=== PATIENT | female | born 1960 | race Hispanic/Latino ===

== ENCOUNTER 2022-04-09 15:49 | Inpatient (IN) | payer OTHER ==
[~2022-04-09] VITALS: Ht 157.5 cm; Wt 74.9 kg
[2022-04-09 20:00] VITALS: BP 150/65
[2022-04-09] MEDS ORDERED: LABETALOL 20MG SYG IV PRN (21:00)
[2022-04-09] MEDS ORDERED: MORPHINE 4 MG SYG IVP PRN (21:00)
[2022-04-09] MEDS ORDERED: LACTULOSE 20 GM/30 ML UDCUP PO PRN (21:00)
[2022-04-09] MEDS ORDERED: TEMAZEPAM 15 MG CAPSULE PO PRN (21:00)
[2022-04-09] MEDS ORDERED: ONDANSETRON 4MG INJ IVP PRN (21:00)
[2022-04-09] MEDS ORDERED: ACETAMINOPHEN 325 MG TAB PO PRN (21:00)
[2022-04-09] MEDS ORDERED: ACETAMINOPHEN 650 MG SUPPOSITORY RC PRN (21:00)
[2022-04-09] MEDS ORDERED: DOCUSATE SODIUM 100 MG CAP PO PRN (21:00)
[2022-04-09] MEDS ORDERED: HYDRALAZINE HCL 10 MG TABLET PO PRN (21:00)
[2022-04-09] MEDS ORDERED: TRAMADOL HCL 50 MG TABLET PO PRN (21:00)
[2022-04-09 23:10] LABS: ABG BASE EXCESS -2.6 mmol/L (-2.0-3.0); ABG HCO3 20.6 mmol/L (21.0-28.0); ABG OXYGEN SATURATION 94.3 % (95.0-99.0); ABG PCO2 31 mmHg (32-45)
[2022-04-09 23:20] LABS: HEMATOCRIT 34.1 % (36-48); MEAN CORPUSCULAR HEMOGLOBIN 28.8 pg (27.0-33.0); MEAN CORPUSCULAR HGB CONC 32.6 g/dL (32.0-36.0); MEAN CORPUSCULAR VOLUME 88.3 fL (79-99); RED BLOOD CELL COUNT(AUTO) 3.86 MIL/uL (4.00-5.50); RED CELL DISTRIBUTION WIDTH 14.7 % (11.0-15.5)
[2022-04-09 23:26] LABS: POTASSIUM 3.7 mmol/L (3.5-5.1)
[2022-04-09 23:28] LABS: INR 0.93 (0.85-1.15); PROTHROMBIN TIME 10.1 SEC (9.6-11.6)
[2022-04-09 23:29] LABS: PARTIAL THROMBOPLASTIN TIME 23.4 SEC (26.3-35.5)
[2022-04-09 23:30] LABS: ALBUMIN 2.2 g/dL (3.5-5.0); MAGNESIUM 1.7 mg/dL (1.80-2.40); TOTAL PROTEIN, SERUM 6.8 g/dL (6.0-8.3)
[2022-04-10] VITALS: BP 159/76
[2022-04-10] MEDS: MAGNESIUM 2GM PREMIX 50ML 50 ML IV PRN (00:51)
[2022-04-10] MEDS: PANTOPRAZOLE 40 MG/VIAL IVP SCH ×3 (00:51→21:54)
[2022-04-10] MEDS ORDERED: LIDOCAINE HCL-MPF 1% 2ML VIAL IJ PRN (01:00)
[2022-04-10] MEDS ORDERED: POTASSIUM CHLORIDE 10% ELIXIR 20 MEQ/15 ML UDCUP PO PRN (01:00)
[2022-04-10] MEDS ORDERED: POTASSIUM CHLORIDE 20MEQ/100ML 100 ML IV PRN (01:00)
[2022-04-10] MEDS: KCL 20 MEQ ERTAB PO PRN (01:17)
[2022-04-10] MEDS ORDERED: VANCOMYCIN PROTOCOL PER PHARMACY IV SCH (02:30)
[2022-04-10] MEDS ORDERED: VANCOMYCIN 1G/250ML KIT 250 ML IV SCH (03:00)
[2022-04-10] MEDS: CEFEPIME HCL 2 GM VIAL IVP SCH ×3 (03:10→18:20)
[2022-04-10 04:00] VITALS: BP 154/66
[2022-04-10 04:36] LABS: BASOPHILS % (AUTO) 0.3 % (0.0-5.0); EOSINOPHILS % (AUTO) 3.1 % (0.0-8.0); HEMATOCRIT 33.4 % (36-48); LYMPHOCYTES % (AUTO) 39.2 % (21.0-51.0); MEAN CORPUSCULAR HGB CONC 33.2 g/dL (32.0-36.0); MEAN CORPUSCULAR VOLUME 87.2 fL (79-99); MONOCYTES % (AUTO) 6.4 % (3.0-13.0); NEUTROPHILS % (AUTO) 50.4 % (40.0-77.0); PLATELET COUNT (AUTO) 272 K/uL (130-400); RED BLOOD CELL COUNT(AUTO) 3.83 MIL/uL (4.00-5.50); RED CELL DISTRIBUTION WIDTH 14.8 % (11.0-15.5); WHITE BLOOD COUNT (AUTO) 9.3 K/uL (4.8-10.8)
[2022-04-10 04:45] LABS: INR 0.94 (0.85-1.15); PROTHROMBIN TIME 10.3 SEC (9.6-11.6)
[2022-04-10] MEDS ORDERED: NAPR-1196 PO (04:48)
[2022-04-10 04:49] LABS: CREATININE 0.8 mg/dL (0.5-1.5); MAGNESIUM 2.4 mg/dL (1.80-2.40); PHOSPHORUS 3.5 mg/dL (2.5-4.9); POTASSIUM 3.8 mmol/L (3.5-5.1)
[2022-04-10] MEDS ORDERED: INSULIN (04:49)
[2022-04-10] MEDS ORDERED: IBUP-2076 PO (04:49)
[2022-04-10 07:40] VITALS: BP 133/57
[2022-04-10] MEDS: ASPIRIN 81 MG EC TAB PO SCH (08:46)
[2022-04-10] MEDS: LISINOPRIL 20 MG TABLET PO SCH (08:46)
[2022-04-10] MEDS: VANCOMYCIN 500MG+NS 100ML 100 ML IV SCH ×2 (10:02→21:54)
[2022-04-10 11:24] VITALS: BP 159/65
[2022-04-10] MEDS ORDERED: HONEY 1 APPL/ML TUBE TP ONE (15:00)
[2022-04-10 15:42] VITALS: BP 156/85
[2022-04-10 20:00] VITALS: BP 182/66
[2022-04-10] MEDS: ATORVASTATIN 40 MG TABLET PO SCH (21:54)
[2022-04-11] VITALS: BP 171/77
[2022-04-11] MEDS: CEFEPIME HCL 2 GM VIAL IVP SCH ×3 (02:25→18:04)
[2022-04-11 04:00] VITALS: BP 146/55
[2022-04-11 08:05] VITALS: BP 126/53
[2022-04-11] MEDS: VANCOMYCIN 500MG+NS 100ML 100 ML IV SCH (08:36)
[2022-04-11] MEDS: LISINOPRIL 20 MG TABLET PO SCH (08:36)
[2022-04-11] MEDS: PANTOPRAZOLE 40 MG/VIAL IVP SCH ×2 (08:36→21:18)
[2022-04-11] MEDS: ASPIRIN 81 MG EC TAB PO SCH (08:36)
[2022-04-11 11:55] VITALS: BP 139/54
[2022-04-11 16:07] VITALS: BP 149/60
[2022-04-11] MEDS: INSULIN HUMULIN R 100 UNIT/ML 3ML SQ SCH ×2 (16:55→21:41)
[2022-04-11 20:00] VITALS: BP 135/64
[2022-04-11] MEDS: ATORVASTATIN 40 MG TABLET PO SCH (21:18)
[2022-04-11] MEDS ORDERED: VANCOMYCIN 1G/250ML KIT 250 ML IV ONE (22:00)
[2022-04-12] VITALS (13 sets, daily range): BP systolic 102–171; BP diastolic 48–80
[2022-04-12] MEDS: CEFEPIME HCL 2 GM VIAL IVP SCH ×3 (03:16→18:14)
[2022-04-12] MEDS ORDERED: VANCOMYCIN 750MG VIAL IVPB SCH (06:00)
[2022-04-12] MEDS: INSULIN HUMULIN R 100 UNIT/ML 3ML SQ SCH ×4 (06:34→21:00)
[2022-04-12] MEDS ORDERED: LIDOCAINE HCL-MPF 2% 10ML AMP IJ ONE ×3 (07:14→08:59)
[2022-04-12] MEDS ORDERED: IODIXANOL 320 MG/ML 100 ML VIAL ONE ×2 (07:14→07:59)
[2022-04-12] MEDS ORDERED: HEPARIN 10,000 UNIT/10ML (1,000 UNIT/ML) VIAL ONE (07:14)
[2022-04-12] MEDS ORDERED: NITROGLYCERIN 50MG VIAL ONE (07:14)
[2022-04-12] MEDS ORDERED: FENTANYL CITRATE PF 50 MCG/1 ML 2ML VIAL ONE ×2 (07:15→09:03)
[2022-04-12] MEDS ORDERED: MIDAZOLAM HCL 1 MG/ML 2ML VIAL ONE ×2 (07:15→09:03)
[2022-04-12] MEDS: ASPIRIN 81 MG EC TAB PO SCH (09:00)
[2022-04-12] MEDS: LISINOPRIL 20 MG TABLET PO SCH (09:00)
[2022-04-12] MEDS ORDERED: IOHEXOL 350 MG/ML 100ML INFUS..BTL IV ONE (09:29)
[2022-04-12] MEDS ORDERED: CLOPIDOGREL 300MG TAB ONE (09:46)
[2022-04-12] MEDS ORDERED: FUROSEMIDE 20MG VIAL ONE (09:51)
[2022-04-12] MEDS: PANTOPRAZOLE 40 MG TAB DR PO SCH (09:56)
[2022-04-12] MEDS ORDERED: 0.9%NACL 1000ML 1,000 ML IV SCH (10:00)
[2022-04-12] MEDS ORDERED: PHARMACY COMMUNICATION MISC SCH (13:00)
[2022-04-12] MEDS ORDERED: MORPHINE 2 MG SYG IVP PRN (13:30)
[2022-04-12] MEDS ORDERED: MORPHINE 2 MG SYG IVP ONE (13:30)
[2022-04-12] MEDS: 0.9%NACL 1000ML 1,000 ML IV SCH (18:13)
[2022-04-12] MEDS: VANCOMYCIN 750MG VIAL IVPB SCH (18:14)
[2022-04-12] MEDS: ATORVASTATIN 40 MG TABLET PO SCH (20:22)
[2022-04-13] VITALS (8 sets, daily range): BP systolic 112–186; BP diastolic 41–80
[2022-04-13] MEDS: 0.9%NACL 1000ML 1,000 ML IV SCH ×2 (00:20→13:18)
[2022-04-13] MEDS: CEFEPIME HCL 2 GM VIAL IVP SCH ×3 (03:18→17:30)
[2022-04-13] MEDS: VANCOMYCIN 750MG VIAL IVPB SCH ×2 (05:28→17:30)
[2022-04-13] MEDS: INSULIN HUMULIN R 100 UNIT/ML 3ML SQ SCH ×4 (06:13→20:29)
[2022-04-13] MEDS: PANTOPRAZOLE 40 MG TAB DR PO SCH (06:55)
[2022-04-13] MEDS ORDERED: ASPIRIN 81MG CHEW TAB PO SCH (09:00)
[2022-04-13] MEDS ORDERED: HEPARIN 25,000 UNITS/250ML D5W 0 ML IV ONE (09:52)
[2022-04-13] MEDS: ASPIRIN 81 MG EC TAB PO SCH (09:53)
[2022-04-13] MEDS: CLOPIDOGREL 75MG TAB PO SCH (09:54)
[2022-04-13] MEDS: LISINOPRIL 20 MG TABLET PO SCH (09:54)
[2022-04-13] MEDS ORDERED: DIPH,PERTUSS(ACELL),TET VAC/PF 0.5 ML VIAL IM SCH (15:30)
[2022-04-13] MEDS: ATORVASTATIN 40 MG TABLET PO SCH (20:16)
[2022-04-13] MEDS: CLONIDINE HCL 0.1 MG TABLET PO PRN (21:01)
[2022-04-14] MEDS: CEFEPIME HCL 2 GM VIAL IVP SCH ×3 (01:38→18:16)
[2022-04-14] MEDS: 0.9%NACL 1000ML 1,000 ML IV SCH ×2 (02:50→15:25)
[2022-04-14 03:43] VITALS: BP 124/56
[2022-04-14 04:38] LABS: HEMATOCRIT 27.6 % (36-48); MEAN CORPUSCULAR HEMOGLOBIN 28.9 pg (27.0-33.0); MEAN CORPUSCULAR HGB CONC 32.6 g/dL (32.0-36.0); MEAN CORPUSCULAR VOLUME 88.7 fL (79-99); RED BLOOD CELL COUNT(AUTO) 3.11 MIL/uL (4.00-5.50); RED CELL DISTRIBUTION WIDTH 14.6 % (11.0-15.5); WHITE BLOOD COUNT (AUTO) 9.6 K/uL (4.8-10.8)
[2022-04-14 04:49] LABS: CREATININE 0.8 mg/dL (0.5-1.5); MAGNESIUM 1.7 mg/dL (1.80-2.40); POTASSIUM 3.1 mmol/L (3.5-5.1)
[2022-04-14] MEDS: VANCOMYCIN 750MG VIAL IVPB SCH (05:31)
[2022-04-14] MEDS: KCL 20 MEQ ERTAB PO PRN ×3 (05:31→18:16)
[2022-04-14] MEDS: MAGNESIUM 2GM PREMIX 50ML 50 ML IV PRN (05:32)
[2022-04-14 06:23] VITALS: BP 159/73
[2022-04-14] MEDS: INSULIN HUMULIN R 100 UNIT/ML 3ML SQ SCH ×4 (06:38→21:00)
[2022-04-14] MEDS: PANTOPRAZOLE 40 MG TAB DR PO SCH (09:39)
[2022-04-14] MEDS: LISINOPRIL 20 MG TABLET PO SCH (09:39)
[2022-04-14] MEDS: ASPIRIN 81 MG EC TAB PO SCH (09:39)
[2022-04-14] MEDS: CLOPIDOGREL 75MG TAB PO SCH (09:39)
[2022-04-14 11:33] VITALS: BP 132/63
[2022-04-14 16:00] VITALS: BP 147/61
[2022-04-14] MEDS: ATORVASTATIN 40 MG TABLET PO SCH (20:18)
[2022-04-14 20:28] VITALS: BP 186/74
[2022-04-14] MEDS: CLONIDINE HCL 0.1 MG TABLET PO PRN (22:07)
[2022-04-15 00:24] VITALS: BP 142/69
[2022-04-15] MEDS: CEFEPIME HCL 2 GM VIAL IVP SCH ×3 (02:06→18:05)
[2022-04-15 04:44] VITALS: BP 140/72
[2022-04-15] MEDS: 0.9%NACL 1000ML 1,000 ML IV SCH (04:46)
[2022-04-15] MEDS: INSULIN HUMULIN R 100 UNIT/ML 3ML SQ SCH ×4 (06:55→20:38)
[2022-04-15 08:00] VITALS: BP 186/82
[2022-04-15] MEDS: ASPIRIN 81 MG EC TAB PO SCH (08:59)
[2022-04-15] MEDS: CLOPIDOGREL 75MG TAB PO SCH (08:59)
[2022-04-15] MEDS: LISINOPRIL 20 MG TABLET PO SCH (09:00)
[2022-04-15] MEDS: PANTOPRAZOLE 40 MG TAB DR PO SCH (09:03)
[2022-04-15 12:00] VITALS: BP 158/73
[2022-04-15 16:00] VITALS: BP 155/75
[2022-04-15] MEDS: VANCOMYCIN 750MG VIAL IVPB SCH (18:05)
[2022-04-15 20:05] VITALS: BP 154/75
[2022-04-15] MEDS: ATORVASTATIN 40 MG TABLET PO SCH (20:35)
[2022-04-16] VITALS (22 sets, daily range): BP systolic 115–172; BP diastolic 44–84
[2022-04-16] MEDS: CEFEPIME HCL 2 GM VIAL IVP SCH ×3 (01:37→17:01)
[2022-04-16] MEDS: VANCOMYCIN 750MG VIAL IVPB SCH (05:14)
[2022-04-16] MEDS: INSULIN HUMULIN R 100 UNIT/ML 3ML SQ SCH ×4 (05:48→21:00)
[2022-04-16] MEDS: VANCOMYCIN 500MG+NS 100ML 100 ML IV SCH ×2 (07:12→17:04)
[2022-04-16] MEDS: CLOPIDOGREL 75MG TAB PO SCH (08:09)
[2022-04-16] MEDS: ASPIRIN 81 MG EC TAB PO SCH (08:09)
[2022-04-16] MEDS: PANTOPRAZOLE 40 MG TAB DR PO SCH (08:11)
[2022-04-16] MEDS: LISINOPRIL 20 MG TABLET PO SCH (08:11)
[2022-04-16 08:28] LABS: MEAN CORPUSCULAR HGB CONC 33.2 g/dL (32.0-36.0); MEAN CORPUSCULAR VOLUME 87.3 fL (79-99); RED BLOOD CELL COUNT(AUTO) 3.55 MIL/uL (4.00-5.50); RED CELL DISTRIBUTION WIDTH 14.5 % (11.0-15.5); WHITE BLOOD COUNT (AUTO) 8.6 K/uL (4.8-10.8)
[2022-04-16 08:40] LABS: CREATININE 0.9 mg/dL (0.5-1.5); POTASSIUM 3.2 mmol/L (3.5-5.1)
[2022-04-16 08:45] LABS: TOTAL PROTEIN, SERUM 6.5 g/dL (6.0-8.3)
[2022-04-16 08:52] LABS: INR 0.96 (0.85-1.15); PROTHROMBIN TIME 10.5 SEC (9.6-11.6)
[2022-04-16 08:53] LABS: PARTIAL THROMBOPLASTIN TIME 23.9 SEC (26.3-35.5)
[2022-04-16] MEDS: KCL 20 MEQ ERTAB PO PRN ×3 (09:12→12:11)
[2022-04-16] MEDS ORDERED: 0.9%NACL 1000ML 1,000 ML IV ONE (13:21)
[2022-04-16] MEDS ORDERED: BUPIVACAINE/PF 0.5% 10ML VIAL ONE ×2 (13:23→13:25)
[2022-04-16] MEDS ORDERED: LIDOCAINE HCL 1% 20 ML VIAL ONE (13:26)
[2022-04-16] MEDS ORDERED: PROPOFOL 10 MG/ML 20ML VIAL IV ONE (13:43)
[2022-04-16] MEDS ORDERED: ROCURONIUM 10MG/1ML SYR 10 MG/ML ML ONE (13:45)
[2022-04-16] MEDS ORDERED: LIDOCAINE PF 100MG/5ML (2%) SYRINGE 5ML ONE (13:45)
[2022-04-16] MEDS ORDERED: FENTANYL CITRATE PF 50 MCG/1 ML 2ML VIAL ONE (14:09)
[2022-04-16] MEDS: MORPHINE 2 MG SYG IVP PRN (17:54)
[2022-04-16] MEDS: ATORVASTATIN 40 MG TABLET PO SCH (20:57)
[2022-04-17] VITALS (7 sets, daily range): BP systolic 127–178; BP diastolic 58–89
[2022-04-17] MEDS: CEFEPIME HCL 2 GM VIAL IVP SCH ×3 (01:16→19:13)
[2022-04-17] MEDS: MORPHINE 2 MG SYG IVP PRN ×2 (03:41→10:42)
[2022-04-17 04:59] LABS: HEMATOCRIT 31.8 % (36-48); MEAN CORPUSCULAR HEMOGLOBIN 29.1 pg (27.0-33.0); MEAN CORPUSCULAR HGB CONC 32.7 g/dL (32.0-36.0); MEAN CORPUSCULAR VOLUME 89.1 fL (79-99); RED BLOOD CELL COUNT(AUTO) 3.57 MIL/uL (4.00-5.50); RED CELL DISTRIBUTION WIDTH 14.7 % (11.0-15.5); WHITE BLOOD COUNT (AUTO) 8.5 K/uL (4.8-10.8)
[2022-04-17 05:27] LABS: ALBUMIN 2.1 g/dL (3.5-5.0); CREATININE 0.9 mg/dL (0.5-1.5); MAGNESIUM 1.6 mg/dL (1.80-2.40); POTASSIUM 3.8 mmol/L (3.5-5.1); TOTAL PROTEIN, SERUM 6.7 g/dL (6.0-8.3)
[2022-04-17] MEDS: VANCOMYCIN 500MG+NS 100ML 100 ML IV SCH ×2 (05:39→17:12)
[2022-04-17] MEDS: INSULIN HUMULIN R 100 UNIT/ML 3ML SQ SCH ×4 (06:06→20:32)
[2022-04-17] MEDS: MAGNESIUM 2GM PREMIX 50ML 50 ML IV PRN (06:41)
[2022-04-17] MEDS: PANTOPRAZOLE 40 MG TAB DR PO SCH (06:41)
[2022-04-17] MEDS: ASPIRIN 81 MG EC TAB PO SCH (09:19)
[2022-04-17] MEDS: LISINOPRIL 20 MG TABLET PO SCH (09:20)
[2022-04-17] MEDS: CLOPIDOGREL 75MG TAB PO SCH (09:20)
[2022-04-17] MEDS ORDERED: MORPHINE 2 MG SYG IVP PRN (13:30)
[2022-04-17] MEDS: ATORVASTATIN 40 MG TABLET PO SCH (20:41)
[2022-04-17] MEDS: ACETAMINOPHEN WITH CODEINE 1 TAB TAB PO PRN (21:07)
[2022-04-18 00:21] VITALS: BP 134/51
[2022-04-18] MEDS: CEFEPIME HCL 2 GM VIAL IVP SCH ×2 (00:33→10:16)
[2022-04-18 04:05] VITALS: BP 136/65
[2022-04-18 05:44] LABS: BASOPHILS % (AUTO) 0.5 % (0.0-5.0); EOSINOPHILS % (AUTO) 7.4 % (0.0-8.0); HEMATOCRIT 28.8 % (36-48); LYMPHOCYTES % (AUTO) 36.2 % (21.0-51.0); MEAN CORPUSCULAR HEMOGLOBIN 28.7 pg (27.0-33.0); MEAN CORPUSCULAR HGB CONC 32.6 g/dL (32.0-36.0); MEAN CORPUSCULAR VOLUME 88.1 fL (79-99); MONOCYTES % (AUTO) 8.7 % (3.0-13.0); NEUTROPHILS % (AUTO) 46.6 % (40.0-77.0); PLATELET COUNT (AUTO) 227 K/uL (130-400); RED BLOOD CELL COUNT(AUTO) 3.27 MIL/uL (4.00-5.50); RED CELL DISTRIBUTION WIDTH 14.6 % (11.0-15.5); WHITE BLOOD COUNT (AUTO) 8.2 K/uL (4.8-10.8)
[2022-04-18] MEDS: INSULIN HUMULIN R 100 UNIT/ML 3ML SQ SCH ×2 (05:52→12:09)
[2022-04-18 06:03] LABS: MAGNESIUM 2.1 mg/dL (1.80-2.40); POTASSIUM 3.7 mmol/L (3.5-5.1)
[2022-04-18] MEDS: KCL 20 MEQ ERTAB PO PRN ×2 (06:20→08:41)
[2022-04-18] MEDS: ACETAMINOPHEN WITH CODEINE 1 TAB TAB PO PRN (06:20)
[2022-04-18] MEDS: PANTOPRAZOLE 40 MG TAB DR PO SCH (06:22)
[2022-04-18] MEDS ORDERED: PHARMACY COMMUNICATION MISC SCH (06:30)
[2022-04-18 07:30] VITALS: BP 141/69
[2022-04-18] MEDS: CLOPIDOGREL 75MG TAB PO SCH (08:40)
[2022-04-18] MEDS: ASPIRIN 81 MG EC TAB PO SCH (08:40)
[2022-04-18] MEDS: LISINOPRIL 20 MG TABLET PO SCH (08:40)
[2022-04-18 11:00] VITALS: BP 123/58
[2022-04-18] MEDS ORDERED: ATOR40TA69 PO (15:00)
[2022-04-18] MEDS ORDERED: CLOP75TA14 PO (15:00)
[2022-04-18] MEDS ORDERED: ACET-2079 PO (15:00)
[2022-04-18] MEDS ORDERED: LISI20TA24 PO (15:00)
[2022-04-18] MEDS ORDERED: AEC81 PO (15:00)
[2022-04-18] MEDS ORDERED: HONEY 1 APPL/ML TUBE TP SCH (16:39)
[2022-04-19] MEDS ORDERED: VANCOMYCIN 1G/250ML KIT 250 ML IV SCH (09:00)
== END 2022-04-18 16:50 | disposition home or self-care (01) | DRG 253 ==
LOC: INTOOBSV 19:03 → 4DH 19:03 → OBSVTOIN 19:03 → UNDODISIN 04-12 16:25
PROVIDERS: ADMIT Internal Medicine Pulmonary Disease; ATTEND Internal Medicine Pulmonary Disease
PROC: 04FH3ZZ Fragmentation of Right External Iliac Artery, Percutaneous Approach (ICD-10-PCS; principal; 2022-04-12)
PROC: 047H3ZZ Dilation of Right External Iliac Artery, Percutaneous Approach (ICD-10-PCS; 2022-04-12)
PROC: 0Y6W0Z0 Detachment at Left 4th Toe, Complete, Open Approach (ICD-10-PCS; 2022-04-16)
DX: E11.52 Type 2 diabetes mellitus with diabetic peripheral angiopathy with gangrene (principal); L03.116 Cellulitis of left lower limb; M86.8X7 Other osteomyelitis, ankle and foot; Z20.822 Contact with and (suspected) exposure to COVID-19; L97.529 Non-pressure chronic ulcer of other part of left foot with unspecified severity; E11.621 Type 2 diabetes mellitus with foot ulcer; E11.69 Type 2 diabetes mellitus with other specified complication; E66.9 Obesity, unspecified; D64.9 Anemia, unspecified; E11.42 Type 2 diabetes mellitus with diabetic polyneuropathy; E78.00 Pure hypercholesterolemia, unspecified; E87.6 Hypokalemia; I10 Essential (primary) hypertension; M06.9 Rheumatoid arthritis, unspecified; Z87.891 Personal history of nicotine dependence; Z89.412 Acquired absence of left great toe; Z79.4 Long term (current) use of insulin; Z68.30 Body mass index [BMI] 30.0-30.9, adult
CPT/HCPCS: 36415; 36600; 71045; 73630; 73718; 75630; 80048; 80053; 80202; 82435; 82803; 82947; 82948; 83605; 83735; 84100; 84132; 84295; 85018; 85025; 85027; 85347; 85610; 85730; 86850; 86900; 86901; 87070; 87076; 87205; 87635; 90715; 93005; 93452; 97039; 99156; 99157; C1760; C1769; C1894; C9113; C9765; G0378; J0692; J1644; J1815; J1940; J2001; J2250; J2270; J2704; J3010; J3370; J3475; J3490; J7030; Q9967